=== PATIENT | male | born 1950 | race Caucasian/White ===

== ENCOUNTER 2019-04-20 21:56 | Emergency (ER) | payer MEDICARE, OTHER ==
[~2019-04-20] VITALS: Ht 167.6 cm; Wt 87.1 kg
[2019-04-20 22:48] LABS: Basophils # (auto) 0.1 uL; Basophils % (auto) 0.5 % (0.0-2.0); Eosinophils # (auto) 0.1 uL; Eosinophils % (auto) 0.3 % (0.0-7.0); Hemoglobin 10.2 g/dL (13.5-17.5); Lymphocytes # (auto) 1.4 uL; Mean Corpuscular Hemoglobin 29.4 pg (28.0-32.0); Mean Corpuscular Hgb Conc. 32.7 g/dL (32.0-36.0); Mean Corpuscular Volume 89.8 fL (80.0-100.0); Monocytes # (auto) 0.8 uL; Monocytes % (auto) 4.4 % (0.0-12.0); Neutrophils # (auto) 14.9 uL; Neutrophils % (auto) 86.8 % (37.0-80.0); Platelet Count (auto) 299 10^3/uL (140-450); Red Blood Cells 3.46 10^6/uL (4.5-5.90); Red Cell Distribution Width 14.7 % (11.8-14.3); White Blood Cell 17.2 10^3/uL (4.4-10.8)
[2019-04-20 23:03] LABS: INR 1.05 (0.9-1.15); Partial Thromboplastin Time 22.8 sec (23.64-32.05)
[2019-04-20 23:06] LABS: Alanine Aminotransferase 25 U/L (16-61); Albumin 3.2 g/dL (3.4-5.0); Anion Gap 9 (5-15); Aspartate Aminotransferase 12 U/L (15-37); BUN/Creatinine Ratio 34.6; Blood Urea Nitrogen 36 mg/dL (7-18); Calcium 8.1 mg/dL (8.5-10.1); Carbon Dioxide 24 mmol/L (21-32); Chloride 106 mmol/L (98-107); GFR African American 92 mL/min; GFR Non-African American 76 mL/min; Glucose 129 mg/dL (74-106); Magnesium 2.2 mg/dL (1.6-2.6); Potassium 4.1 mmol/L (3.5-5.1); Sodium 139 mmol/L (136-145)
[2019-04-20 23:11] LABS: Alkaline Phosphatase 48 U/L (45-117); Bilirubin, Total 0.7 mg/dL (0.2-1.0)
[2019-04-21] MEDS ORDERED: IOHEXOL 300 MG/ML 100ML BOTTLE IJ ONE (00:48)
[2019-04-21 03:00] VITALS: BP 109/59
== END 2019-04-21 04:38 | disposition home or self-care (01) ==
LOC: ER 22:00
DX: K44.9 Diaphragmatic hernia without obstruction or gangrene (principal); Z90.49 Acquired absence of other specified parts of digestive tract; Z85.01 Personal history of malignant neoplasm of esophagus
CPT/HCPCS: 36415; 74177; 80053; 83735; 84484; 85025; 85610; 85730; 86850; 86900; 86901; 93005; 99284; Q9967